=== PATIENT | female | born 1995 | race Caucasian/White ===

== ENCOUNTER → 2018-02-13 | Outpatient (CLI) | payer OTHER ==
[2018-02-13 16:44] LABS: BASO % 0.1 % (0.0-1.0); EOS # 0.1 10^3/uL (0.0-0.50); HEMATOCRIT 27.9 % (36.0-47.0); HEMOGLOBIN 9.3 g/dl (12.0-15.5); IMMATURE GRANULOCYTE % 0.3 % (0-3.0); LYMPH # 1.2 10^3/uL (1.5-6.5); MEAN CORPUSCULAR HEMOGLOBIN 31.8 pg (27.0-33.0); MEAN CORPUSCULAR HGB CONC 33.3 g/dl (32.0-36.5); MEAN CORPUSCULAR VOLUME 95.5 fl (80.0-96.0); MONO # 0.5 10^3/uL (0.0-0.8); MONO % 6.5 % (0.0-5.0); NEUTROPHILS # 5.5 10^3/uL (1.8-7.7); NEUTROPHILS % 76.1 % (36.0-66.0); PLATELET COUNT, AUTOMATED 255 10^3/uL (150-450); RED BLOOD COUNT 2.92 10^6/uL (4.00-5.40); RED CELL DISTRIBUTION WIDTH 12.5 % (11.5-14.5); WHITE BLOOD COUNT 7.2 10^3/uL (4.0-10.0)
[2018-02-13 17:12] LABS: GLUCOSE CHALLENGE TEST 1 HOUR 79 MG/DL (LESS THAN 140)
[2018-02-13 19:40] LABS: CHLAMYDIA DNA AMPLIFICATION NEGATIVE (NEGATIVE); GC DNA AMPLIFICATION NEGATIVE (NEGATIVE)
[2018-02-16 11:38] LABS: RUBELLA IgG QUALITATIVE IMMUNE (IMMUNE)
[2018-02-16 11:41] LABS: HBsAg Prenatal NEGATIVE (NEGATIVE)
[2018-02-16 12:07] LABS: HIV 1&2 SCREEN CENTAUR NEGATIVE (NEGATIVE)
== END ==
LOC: M RAD 14:44
DX: Z34.82 Encounter for supervision of other normal pregnancy, second trimester (principal)

== ENCOUNTER 2019-01-23 08:04 | Outpatient (CLI) | payer OTHER, SELFPAY ==
[~2019-01-23] VITALS: Ht 165.1 cm; Wt 48.2 kg
[~2019-01-23 08:04] MED LIST: PRENTAB9 PO; TYLE500T78 PO; UNIS25TA3 PO
[2019-01-23] MEDS ORDERED: ZOLO50TA PO (08:38)
[2019-01-23] MEDS ORDERED: ONDANSETRON 4MG/2ML VIAL (J2405) IV ONE (08:45)
[2019-01-23] MEDS ORDERED: LR 1,000 ML IV ONE (08:45)
--- NOTE | 2019-01-23 10:11 | IPNPDOC ---
Text Note Date of Service The patient was seen on 01/23/19. NOTE Triage Note Opal is a 23yo with SIUP at approx 25wk gestation who presents this morning with new onset emesis and diarrhea this morning. Has felt weak since emesis/diarrhea. Did not eat anything strange last night and felt well yesterday. No fevers/chills/myalgias/no upper respiratory symptoms. PMhx significant for underweight (starting BMI 16.1, 10lb weight gain so far), short inter- interval (delivered 04/2018), anemia taking iron, and hx of depression with SA and hospital admit in 2017- takes zoloft 50mg qd. Vitals wnl, afebrile General: WDWN (thin) female resting comfortably in bed, NAD Abdomen: soft, gravid, NTTP, non-distended Extremities: no edema BLE NST reassuring for gestational age with +accels, mod liz, -decels [place]: no regular ctx Assessment: Opal is a 23yo with SIUP at approx 25wk gestation with possible viral gastroenteritis, new sx just this morning. Received 2L of LR IVF in triage and 4mg IV zofran and felt improved, able to tolerate PO. Reassuring status. Plan: -safe for discharge home -patient given home Rx phenergan from [facility], 1 tab PO q4-6hr -discussed continued attention to hydration, rest, BRAT diet -keep next routine OB visit -return precautions discussed MD Svetlana Castro Katrina D MD Jan 23, 2019 09:49
== END 2019-01-23 11:20 | disposition home or self-care (01) ==
LOC: M LDO 08:04
PROVIDERS: ATTEND Obstetrics & Gynecology
DX: O21.2 Late vomiting of pregnancy (principal); O99.89 Other specified diseases and conditions complicating pregnancy, childbirth and the puerperium; R19.7 Diarrhea, unspecified; Z3A.25 25 weeks gestation of pregnancy
CPT/HCPCS: 96360; 96361; 96374; G0378; G0463; J2405

== ENCOUNTER 2019-03-05 04:12 | Outpatient (CLI) | payer OTHER ==
[~2019-03-05] VITALS: Ht 165.1 cm; Wt 50.2 kg
[~2019-03-05 04:12] MED LIST changes: +ZOLO50TA PO
[2019-03-05 04:31] VITALS: BP 99/48
--- NOTE | 2019-03-05 05:23 | IPNPDOC ---
Text Note Date of Service The patient was seen on 03/05/19. NOTE Triage Note Opal is a 23yo with SIUP at 31w1d by early u/s presenting with ctx that have kept her from sleeping. She also notices slight pink tinged vaginal discharge, which she refers to as spotting, for the past week. Feels good movement, no LOF. She called about midnight and I instructed her to come in- she presented around 4am. She has had no vaginal itching or odor, no burning with urination. Notably, she started underweight (BMI 16) and has a short inter- interval (last baby born April 2018). She had a growth scan last week for measuring s<d, and while I cannot see the result of that scan, she had prior scan at 25wk at [facility] for similar issue and that showed appropriate interval growth. Her last baby was 5+lb at full term. Vitals wnl, afebrile General: WDWN, resting comfortably in bed Abdomen: soft, gravid, NTTP Extremities: no edema BLE SCE (RN as waitress): closed/thick/high, NO blood on exam glove FHRT: reassuring for gestational age with mod liz, +accels, -decels [place]: 1 or 2 ctx in > 30 min Assessment: Opal is a 23yo with SIUP at 31w1d by early u/s with NO evidence of PTL, 1 or 2 ctx in >30min and SCE cl/th/high. status reassuring. Plan: -keep routine OB appt scheduled this coming Friday -encouraged rest and attention to hydration -ok to take a dose of benadryl for sleep as needed, recommended warm baths, warm milk or decaffeinated tea to assist sleep -return precautions discussed -safe for discharge home Dr. Ellen Mota MD A-FIB/CHADSVASC A-FIB History Current/History of A-Fib/PAF?: No Current Oral Anticoagulant The: No VS,Fishbone, I+O VS, Fishbone, I+O Vital Signs Date Time Temp Pulse Resp B/P (MAP) Pulse Ox O2 Delivery O2 Flow Rate FiO2 03/05/19 04:31 99.0 95 16 99/48 (65) Ellen Mota MD March 05, 2019 05:23
== END 2019-03-05 05:30 | disposition home or self-care (01) ==
LOC: M LDO 04:12
PROVIDERS: ATTEND Obstetrics & Gynecology
DX: O26.853 Spotting complicating pregnancy, third trimester (principal); O47.03 False labor before 37 completed weeks of gestation, third trimester; Z3A.31 31 weeks gestation of pregnancy